=== PATIENT | female | born 1975 | race Hispanic/Latino ===

== ENCOUNTER 2022-10-01 05:30 | Observation (INO) | payer MEDICAID ==
[2022-09-26 11:38] LABS: BASOPHILS % (AUTO) 0.3 % (0.0-5.0); EOSINOPHILS % (AUTO) 1.8 % (0.0-8.0); HEMATOCRIT 37.2 % (36-48); LYMPHOCYTES % (AUTO) 25.9 % (21.0-51.0); MEAN CORPUSCULAR HEMOGLOBIN 25.6 pg (27.0-33.0); MEAN CORPUSCULAR HGB CONC 31.7 g/dL (32.0-36.0); MEAN CORPUSCULAR VOLUME 80.7 fL (79-99); MONOCYTES % (AUTO) 8.8 % (3.0-13.0); NEUTROPHILS % (AUTO) 62.8 % (40.0-77.0); PLATELET COUNT (AUTO) 185 K/uL (130-400); RED BLOOD CELL COUNT(AUTO) 4.61 MIL/uL (4.00-5.50); RED CELL DISTRIBUTION WIDTH 13.7 % (11.0-15.5); WHITE BLOOD COUNT (AUTO) 7.7 K/uL (4.8-10.8)
[2022-09-26 12:28] LABS: APPEARANCE,URINE CLEAR (CLEAR); BILIRUBIN,URINE NEGATIVE (NEGATIVE); COLOR,URINE YELLOW (YELLOW); GLUCOSE, URINE (UA) NEGATIVE (NEGATIVE); KETONES,URINE NEGATIVE (NEGATIVE); LEUKOCYTE ESTERASE ,URINE NEGATIVE Leu/uL (NEGATIVE); NITRATE,URINE NEGATIVE (NEGATIVE); OCCULT BLOOD,URINE NEGATIVE (NEGATIVE); PH,URINE 6.5 (5.0-8.0); PROTEIN,URINE 20 mg/dL (NEGATIVE); UROBILINOGEN,URINE 0.2 mg/dL (0.2-1.0)
[2022-09-26 12:34] LABS: BACTERIA,URINE RARE /HPF (None Seen); MUCUS,URINE RARE LPF (None Seen); SQUAMOUS EPITHELIAL CELL,UR FEW /HPF (0-2); WBC,URINE 0-1 /HPF (0-1)
[2022-09-26] MEDS: CEFAZOLIN SODIUM 2 GM VIAL IVPB SCH (14:00)
[2022-09-27] MEDS: CEFAZOLIN SODIUM 2 GM VIAL IVPB SCH (14:00)
[2022-09-30 09:31] VITALS: BP 129/67
[~2022-10-01] VITALS: Ht 167.6 cm; Wt 79.8 kg
[2022-10-01] VITALS (24 sets, daily range): BP systolic 88–135; BP diastolic 33–82
[2022-10-01] MEDS ORDERED: LACTATED RINGERS 1000ML 1,000 ML IV ONE ×2 (07:05→09:50)
[2022-10-01] MEDS ORDERED: PROPOFOL 10 MG/ML 20ML VIAL IV ONE (07:34)
[2022-10-01] MEDS ORDERED: ROCURONIUM 10MG/1ML SYR 10 MG/ML ML ONE (07:34)
[2022-10-01] MEDS ORDERED: MIDAZOLAM HCL 1 MG/ML 2ML VIAL ONE (07:34)
[2022-10-01] MEDS ORDERED: FENTANYL CITRATE PF 50 MCG/1 ML 2ML VIAL ONE ×2 (07:34→08:57)
[2022-10-01] MEDS ORDERED: LIDOCAINE PF 100MG/5ML (2%) SYRINGE 5ML ONE (07:34)
[2022-10-01] MEDS: CEFAZOLIN SODIUM 2 GM VIAL IVPB SCH (07:43)
[2022-10-01] MEDS ORDERED: GLYCOPYRROLATE 1 MG/5 ML SYRINGE ONE (08:21)
[2022-10-01] MEDS ORDERED: EPHEDRINE SULFATE 50 MG/ML AMPULE ONE (08:27)
[2022-10-01] MEDS ORDERED: NEOSTIGMINE 5MG/5ML SYR IV ONE (08:57)
[2022-10-01] MEDS ORDERED: MEPERIDINE-PF 25 MG/ML SYG ONE (09:34)
[2022-10-01] MEDS ORDERED: MEPERIDINE-PF 75 MG/ML SYG IM PRN (10:30)
[2022-10-01] MEDS ORDERED: IBUPROFEN 600 MG TABLET PO PRN (10:30)
[2022-10-01] MEDS ORDERED: DOCUSATE SODIUM 100 MG CAP PO PRN (10:30)
[2022-10-01] MEDS ORDERED: BISACODYL 10 MG SUPP.RECT RC PRN (10:30)
[2022-10-01] MEDS ORDERED: SIMETHICONE 80 MG TAB.CHEW PO PRN (10:30)
[2022-10-01] MEDS ORDERED: PROMETHAZINE HCL 25 MG/ML 1ML AMPULE IM PRN ×2 (10:30)
[2022-10-01] MEDS: ACETAMINOPHEN WITH CODEINE 1 TAB TAB PO PRN (15:32)
[2022-10-01] MEDS: DEXTROSE 5 %-0.45 % NACL 1,000 ML IV SCH (18:54)
[2022-10-02] MEDS: DEXTROSE 5 %-0.45 % NACL 1,000 ML IV SCH ×2 (02:58→11:00)
[2022-10-02] MEDS: ACETAMINOPHEN WITH CODEINE 1 TAB TAB PO PRN (03:04)
[2022-10-02 03:21] VITALS: BP 98/62
[2022-10-02 07:48] VITALS: BP 109/58
[2022-10-02 09:06] LABS: HEMATOCRIT 31.9 % (36-48); MEAN CORPUSCULAR HEMOGLOBIN 25.7 pg (27.0-33.0); MEAN CORPUSCULAR HGB CONC 31.3 g/dL (32.0-36.0); RED BLOOD CELL COUNT(AUTO) 3.89 MIL/uL (4.00-5.50); RED CELL DISTRIBUTION WIDTH 14.1 % (11.0-15.5); WHITE BLOOD COUNT (AUTO) 12.7 K/uL (4.8-10.8)
[2022-10-02 11:56] VITALS: BP 118/71
== END 2022-10-02 12:10 | disposition home or self-care (01) ==
LOC: DAH 05:30 → WSH 05:31 → DAH 05:31
PROVIDERS: ADMIT Obstetrics & Gynecology; ATTEND Obstetrics & Gynecology
DX: D25.9 Leiomyoma of uterus, unspecified (principal); Z20.822 Contact with and (suspected) exposure to COVID-19; N83.202 Unspecified ovarian cyst, left side; N92.1 Excessive and frequent menstruation with irregular cycle; K46.9 Unspecified abdominal hernia without obstruction or gangrene; Z79.899 Other long term (current) drug therapy
CPT/HCPCS: 85025; 86850 ×2; 86900 ×2; 86901 ×2; 87426; 81001; 36415 ×3; 58263; 96372; 84703; 85027; A6260; G0378 ×30; G0379; A4663; J7120 ×3; A4351; A4606; J3010 ×2; J3490 ×4; J2710; J2550; J2250; J2175 ×2; J0690; A4649; A4930; A4215; A4223; A4222; A4221; A4600; A4510; J2001; J2704

== ENCOUNTER 2023-06-12 00:58 | Emergency (ER) | payer MEDICAID ==
[~2023-06-12] VITALS: Ht 167.6 cm; Wt 82.1 kg
[2023-06-12 07:22] LABS: BASOPHILS # (AUTO) 0.01 K/uL (0.00-0.20); BASOPHILS % (AUTO) 0.1 % (0.0-5.0); EOSINOPHILS # (AUTO) 0.15 K/uL (0.00-0.70); HEMATOCRIT 38.2 % (36-48); IMMATURE GRANULOCYTE ABSOLUTE 0.03 K/uL (0-1); LYMPHOCYTES # (AUTO) 2.3 K/uL (1.0-4.8); LYMPHOCYTES % (AUTO) 31.6 % (21.0-51.0); MEAN CORPUSCULAR HEMOGLOBIN 27.6 pg (27.0-33.0); MEAN CORPUSCULAR HGB CONC 32.5 g/dL (32.0-36.0); MEAN CORPUSCULAR VOLUME 85.1 fL (79-99); MONOCYTES # (AUTO) 0.6 K/uL (0.1-1.0); MONOCYTES % (AUTO) 7.7 % (3.0-13.0); NEUTROPHILS # (AUTO) 4.3 K/uL (1.8-7.7); NEUTROPHILS % (AUTO) 58.2 % (40.0-77.0); PLATELET COUNT (AUTO) 156 K/uL (130-400); RED BLOOD CELL COUNT(AUTO) 4.49 MIL/uL (4.00-5.50); WHITE BLOOD COUNT (AUTO) 7.4 K/uL (4.8-10.8)
[2023-06-12 07:30] LABS: CREATININE 0.6 mg/dL (0.5-1.5); POTASSIUM 3.8 mmol/L (3.5-5.1)
[2023-06-12 07:35] LABS: ALBUMIN 3.5 g/dL (3.5-5.0); BILIRUBIN,TOTAL 0.3 mg/dL (0.2-1.0); TOTAL PROTEIN, SERUM 7.8 g/dL (6.0-8.3)
[2023-06-12 08:02] LABS: APPEARANCE,URINE CLOUDY (CLEAR); BILIRUBIN,URINE NEGATIVE (NEGATIVE); COLOR,URINE LIGHT-YELLOW (YELLOW); GLUCOSE, URINE (UA) NEGATIVE (NEGATIVE); KETONES,URINE NEGATIVE (NEGATIVE); LEUKOCYTE ESTERASE ,URINE NEGATIVE Leu/uL (NEGATIVE); NITRATE,URINE 2+ (NEGATIVE); OCCULT BLOOD,URINE NEGATIVE (NEGATIVE); PROTEIN,URINE NEGATIVE (NEGATIVE); UROBILINOGEN,URINE 0.2 mg/dL (0.2-1.0)
[2023-06-12 08:03] LABS: ADD UA MICROSCOPIC YES
[2023-06-12 08:12] LABS: BACTERIA,URINE MANY /HPF (None Seen); MUCUS,URINE FEW LPF (None Seen); SQUAMOUS EPITHELIAL CELL,UR FEW /HPF (0-2)
[2023-06-12] MEDS ORDERED: CLOT15CR23 TP (08:28)
[2023-06-12] MEDS ORDERED: SULF1TAB42 PO (09:03)
[2023-06-12 09:15] VITALS: BP 112/66; PULSE 69; RESP 12; O2SAT 99
== END 2023-06-12 09:14 | disposition home or self-care (01) ==
LOC: EDH 00:58
DX: B35.3 Tinea pedis (principal); L73.9 Follicular disorder, unspecified
CPT/HCPCS: 36415; 80053; 81001; 85025; 87077; 87088; 87186

== ENCOUNTER 2024-12-28 01:26 | Emergency (ER) | payer SELFPAY ==
[~2024-12-28] VITALS: Ht 167.6 cm; Wt 80.3 kg
[~2024-12-28 01:26] MED LIST: CLOT15CR23 TP; SULF1TAB42 PO
[2024-12-28 02:10] LABS: HEMATOCRIT 43.2 % (36-48); MEAN CORPUSCULAR HEMOGLOBIN 27.7 pg (27.0-33.0); MEAN CORPUSCULAR HGB CONC 31.9 g/dL (32.0-36.0); MEAN CORPUSCULAR VOLUME 86.6 fL (79-99); PLATELET COUNT (AUTO) 168 K/uL (130-400); RED BLOOD CELL COUNT(AUTO) 4.99 MIL/uL (4.00-5.50); WHITE BLOOD COUNT (AUTO) 13.4 K/uL (4.8-10.8)
[2024-12-28] MEDS: ondanSETRON 4MG INJ IVP ONE (02:22)
[2024-12-28] MEDS: FAMOTIDINE 20MG VIAL IV ONE (02:22)
[2024-12-28] MEDS: 0.9%NACL 1000ML 1,000 ML IV ONE (02:23)
[2024-12-28 02:24] LABS: CREATININE 0.7 mg/dL (0.5-1.0); POTASSIUM 3.2 mmol/L (3.5-5.1)
[2024-12-28] MEDS: cefTRIAXone 1G VIAL IVPB ONE (02:59)
[2024-12-28] MEDS: PoTASSium BIcarbonate/CIT AC 25 MEQ TABLET.EFF PO ONE (02:59)
[2024-12-28 03:01] LABS: LYMPHOCYTES % (MANUAL) 16 % (22-44); MAN.DIFF COMMENT-IMPRESSION MANUAL DIFFERENTIAL; MONOCYTES % (MANUAL) 1 % (2-9); OTHER CELLS,MANUAL % 1 (0-0); SEGMENTED NEUTROPHILS % 82 % (40-70); TOTAL CELLS COUNTED 100
[2024-12-28] MEDS ORDERED: METR375C2 PO (03:18)
[2024-12-28] MEDS ORDERED: ONDA-243 PO (03:18)
[2024-12-28] MEDS ORDERED: FAMO-136 PO (03:18)
--- NOTE | 2024-12-28 03:19 | ERN ---
General Chief Complaint: Nausea,Vomiting,Diarrhea Stated Complaint: C/O N X V X DIARRHEA ONSET TONIGHT Time Seen by MD: 01:56 Time Seen by Midlevel: 01:56 Source: patient History of Present Illness Initial Comments 49-year-old female presenting to the emergency department with nausea/vomiting/diarrhea that started tonight. Family members sick with similar symptoms after he ate food that was left over. Patients specifically denies any abdominal pain. No other symptoms reported Allergies: Coded Allergies: No Known Drug Allergies (Verified Allergy, Unknown, 09/26/22) Home Meds Active Scripts Sulfamethoxazole/Trimethoprim (Bactrim Ds Tablet) 800 Mg-160 Mg Tablet, 1 TAB PO BID for 5 Days, #10 TAB 0 Refills Prov:MELISSA LYMAN MD 06/12/23 Clotrimazole (Clotrimazole) 1 % Cream..g., 1 APPL TP BID for 21 Days, #1 TUBE Apply to affected foot Prov:MELISSA LYMAN MD 06/12/23 Past Medical History Past Medical History: No Pertinent History Past Surgical History: Hysterectomy ROS Dictation CONSTITUTIONAL: Negative except for HPI HEAD/FACE: Negative except for HPI EENT: Negative except for HPI RESPIRATORY: Negative except for HPI GASTROINTESTINAL/ABDOMINAL: Negative except for HPI GENITOURINARY: Negative except for HPI MUSCULOSKELETAL: Negative except for HPI INTEGUMENTARY: Negative except for HPI NEUROLOGICAL/PSYCH: Negative except for HPI HEMATOLOGIC/LYMPHATIC: Negative except for HPI All Systems Negative, Except as noted above. 13 point review of systems assessed and all negative except for above. Physical Exam Physical Exam Dictation Vital Signs reviewed General Appearance: Alert, oriented x 3, no acute distress, well developed, nourished. Head and Face: non-traumatic. Eyes: PERRL, pink conjunctivas, eyelid no trauma, anterior chamber with arcus senilis. Ears: Pinnas intact and no signs of trauma or erythema ear canals clear and no discharge TM no erythema Nose: No discharge, no bleeding. Oropharynx: Mouth normal, tongue pink, pharynx clear,no erythema, tonsils no exudates, no abscesses noted, mucous membrane moist Neck: Supple, non-tender, no thyromegaly, no masses, no JVD, no bruits Breast:Deferred Chest:No tenderness, no crepitus, no paradoxical movement, no retractions Lungs:Clear, well-ventilated, symmetric, no rales, no wheezing, no rhonchi, no stridor, good breath sounds bilaterally Heart: Regular rate, regular rhythm, no murmur, no gallops Vascular: no peripheral edema, Abdomen: Soft, positive bowel sounds, nondistended, no guarding, nontender, no rebound, no masses no hepatomegaly, no splenomegaly, no Renner's sign, no hernias. Rectal: Deferred Genital: Deferred Neurological: Normal speech, motor function intact, sensory function intact Musculoskeletal: Neck nontender, full range of motion, back nontender, full range of motion, Extremities: nontender, full range of motion Skin: Color pink, dry, no turgor, no rash, no lacerations, no abrasions, no contusions. Lymphatic: Deferred Results Laboratory and Microbiology Lab and Micro Result Laboratory Tests Test 12/28/24 02:02 White Blood Count 13.4 K/uL (4.8-10.8) H Red Blood Count 4.99 MIL/uL (4.00-5.50) Hemoglobin 13.8 g/dL (12.0-16.0) Hematocrit 43.2 % (36-48) Mean Corpuscular Volume 86.6 fL (79-99) Mean Corpuscular Hemoglobin 27.7 pg (27.0-33.0) Mean Corpuscular Hemoglobin Concent 31.9 g/dL (32.0-36.0) L Red Cell Distribution Width 13.0 % (11.0-15.5) Platelet Count 168 K/uL (130-400) Mean Platelet Volume 11.4 fL (7.5-10.5) H Segmented Neutrophils % 82 % (40-70) H Lymphocytes % (Manual) 16 % (22-44) L Monocytes % (Manual) 1 % (2-9) L Other Cells % 1 (0-0) H Nucleated Red Blood Cells 0.0 % (0.0-0.19) Differential Comment MANUAL DIFFERENTIAL White Cell Morphology Comment Platelet Morphology Comment See comments Red Blood Cell Morphology POIKILOCYTOSIS 1+ Sodium Level 142 mmol/L (136-145) Potassium Level 3.2 mmol/L (3.5-5.1) L Chloride Level 102 mmol/L (101-111) Carbon Dioxide Level 32 mmol/L (21-32) Blood Urea Nitrogen 20 mg/dL (7-18) H Creatinine 0.7 mg/dL (0.5-1.0) Glomerular Filtration Rate Calc 107 mL/min (>90) Random Glucose 119 mg/dL (70-105) H Total Calcium 9.2 mg/dL (8.5-10.1) Labs Reviewed?: Yes MDM MDM: Differential diagnosis: Viral gastroenteritis, pancreatitis There are no social concerns with this patient. Prescription drug management Prescriptions will include: Zofran and Pepcid Medical management and examination interpretation discussions were had by me with other qualified healthcare professionals as indicated for the patient's care. ED Course Orders Procedure Category Date Status Time Cbc W Manual Diff LAB 12/28/24 In Process 01:43 Basic Metabolic Panel LAB 12/28/24 Complete 01:43 0.9%Nacl 1000ml (Ns PHA 12/28/24 Complete 1000ml) 02:30 Ondansetron 4mg Inj PHA 12/28/24 Complete (Zofran 4mg Inj) 02:30 Famotidine 20mg Vial PHA 12/28/24 Complete (Pepcid 20mg Vial) 02:30 Potassium Bicarb/Cit PHA 12/28/24 Complete Ac 25meq (K-Lyte Ta 03:00 Ceftriaxone 1g Vial PHA 12/28/24 Complete (Rocephine 1g Inj) 03:00 Current Medications Medications (Trade) Dose Ordered Sig/Kelly Route PRN Reason Start Time Stop Time Status Last Admin Dose Admin Ceftriaxone Sodium (ROCEphine 1G INJ) 1 gm ONCE ONCE IVPB 12/28/24 03:00 12/28/24 03:01 DC 12/28/24 02:59 Famotidine (Pepcid 20mg Vial) 20 mg ONCE ONCE IV 12/28/24 02:30 12/28/24 02:31 DC 12/28/24 02:22 Ondansetron HCl (zoFRAN 4MG INJ) 4 mg ONCE ONCE IVP 12/28/24 02:30 12/28/24 02:31 DC 12/28/24 02:22 Potassium Bicarbonate (K-Lyte Tablet Eff 25 Meq Tablet.eff) 25 meq ONCE ONCE PO 12/28/24 03:00 12/28/24 03:01 DC 12/28/24 02:59 Sodium Chloride 1,000 ml @ 0 mls/hr ONCE ONCE IV 12/28/24 02:30 12/28/24 02:31 DC 12/28/24 02:23 Vital Signs Date Time Temp Pulse Resp B/P (MAP) Pulse Ox O2 Delivery O2 Flow Rate FiO2 12/28/24 01:28 98.1 106 20 121/77 97 Room Air DX & DISP Disposition: Discharge Departure Impression: Primary Impression: Viral gastroenteritis Additional Impression: Leukocytosis Condition: Stable Scripts Metronidazole (Flagyl) 375 Mg Capsule 1 CAP PO BID for 5 Days, #10 CAP 0 Refills Prov: JENNIFER LAUREANO 12/28/24 Famotidine (Pepcid) 20 Mg Tablet 1 TAB PO BID for 30 Days, #60 TAB 0 Refills Prov: JENNIFER LAUREANO 12/28/24 Ondansetron (Ondansetron Odt) 4 Mg Tab.rapdis 4 MG PO BID for 7 Days, #14 TAB Prov: JENNIFER LAUREANO 12/28/24 Additional Instructions: Your blood work today shows an elevated white blood cell count which is usually seen with gastroenteritis The remainder of your blood work is unremarkable. You were given one dose of IV antibiotics in the emergency department. I have given you a prescription for Zofran and Pepcid which should help with any abdominal discomfort. I have also given you a prescription for oral antibiotics for outpatient management. Please follow up with your primary care doctor in 2-3 days for repeat e valuation. Referrals: ALEX SHRESTHA MD (PCP) Time of Disposition: 03:16 I have reviewed the case, and I agree with, Diagnosis and Plan I performed the substantive portion of the visit. I have reviewed and p ersonally made and approve the management plan that is documented in the note by myself or the YOSI. I acknowledge for responsibility for the patient's management plan. JENNIFER LAUREANO Dec 28, 2024 03:19
[2024-12-28 03:30] VITALS: BP 123/80; PULSE 97; RESP 18; TEMP 98; O2SAT 99
--- NOTE | 2024-12-28 10:15 | NUR ---
[facility] THEY CALLED AND ASKED IF WE ARE ABLE TO CHANGE DOSE OF FLAGYL THAT WAS SCRIPTED. WHEN CURRENT ED MD ASKED, HE SAID HE COULD NOT CHANGE IT D/T THERE BEING A SPECIFIC REASON TO WHY THE DOSE OF FLAGYL 375MG WAS PRESCRIBED.
== END 2024-12-28 04:03 | disposition home or self-care (01) ==
LOC: EDH 01:26
DX: A08.4 Viral intestinal infection, unspecified (principal); D72.829 Elevated white blood cell count, unspecified; Z90.710 Acquired absence of both cervix and uterus; Z79.899 Other long term (current) drug therapy
CPT/HCPCS: 36415; 80048; 85025; 96374; 96375; 99284; J0696; J2405; J3490; J7030

== ENCOUNTER 2025-08-28 21:30 | Emergency (ER) | payer SELFPAY ==
[~2025-08-28] VITALS: Ht 167.6 cm; Wt 79.4 kg
[~2025-08-28 21:30] MED LIST changes: +FAMO-136 PO; +METR375C2 PO; +ONDA-243 PO
[2025-08-28 21:35] VITALS: BP 125/48; PULSE 94; RESP 20; TEMP 97.7
--- NOTE | 2025-08-28 21:46 | ERN ---
ED Note History of Present Illness Stated Complaint: FALL Chief Complaint: Ankle Problem Time Seen by MD: 21:42 Dictation: This is a 50-year-old female who presented to the emergency room complaining of fall with bilateral ankle pains. This happened an hour before presentation. No loss of consciousness patient is not on any blood thinners. She does not have any regular health care. Bilateral ankles were wrapped in Claudy bandage before she came in. She stated that she was getting down the steps and missed the last step and fell down with both ankles getting twisted. No other injuries. Temperature 97.7 pulse 94 respirations 20 blood pressure 125/48 with a pulse oximetry of 99% on room air History in the past has been hysterectomy Allergies: Coded Allergies: No Known Drug Allergies (Verified Allergy, Unknown, 09/26/22) Home Meds Active Scripts Ketorolac Tromethamine (Toradol) 10 Mg Tab, 10 MG PO QID for pain for 5 Days, #20 TAB 0 Refills Prov:PATRICE RENEE MD 08/29/25 Metronidazole (Flagyl) 375 Mg Capsule, 1 CAP PO BID for 5 Days, #10 CAP 0 Refills Prov:JENNIFER LAUREANO 12/28/24 Famotidine (Pepcid) 20 Mg Tablet, 1 TAB PO BID for 30 Days, #60 TAB 0 Refills Prov:JENNIFER LAUREANO 12/28/24 Ondansetron (Ondansetron Odt) 4 Mg Tab.rapdis, 4 MG PO BID for 7 Days, #14 TAB Prov:JENNIFER LAUREANO 12/28/24 Sulfamethoxazole/Trimethoprim (Bactrim Ds Tablet) 800 Mg-160 Mg Tablet, 1 TAB PO BID for 5 Days, #10 TAB 0 Refills Prov:MELISSA LYMAN MD 06/12/23 Clotrimazole (Clotrimazole) 1 % Cream..g., 1 APPL TP BID for 21 Days, #1 TUBE Apply to affected foot Prov:MELISSA LYMAN MD 06/12/23 Past Medical History Past Medical History: No Pertinent History Surgical History: Hysterectomy Family History: Negative Social History: Negative RN Note Reviewed/Agreed w/PFSH: Yes Review of System Dictation Constitutional: Negative for fever,chills, and weight loss Eyes: Negative for injury, pain,redness, and discharge ENT: Negative for injury,pain or swelling Cardiovascular: Negative for chest pain, palpitations, and edema Respiratory: Negative for shortness of breath, cough, and wheezing, Abdomen/GI: Negative for abdominal pain, nausea, vomiting, diarrhea, and constipation Back: Negative for injury and pain : Negative for injury, bleeding and discharge MS/Extremity: Positive for injury and mild deformity of right ankle, mild swelling of the left ankle, positive for pain Skin: Negative for rash, and discoloration Neuro: Negative for headache, weakness, numbness, tingling, and seizure Psych: Negative for suicide ideation, homicidal ideation, and hallucinations Initial Vital Sign VS Vital Signs Date Time Temp Pulse Resp B/P (MAP) Pulse Ox O2 Delivery O2 Flow Rate FiO2 08/28/25 21:35 97.7 94 20 125/48 99 Room Air Physical Exam Dictation General: awake, alert, NAD overweight female not in any distress Head/Face: Normocephalic, atraumatic Eyes: PERRL, EOMI, vision at baseline ENT: oral cavity clear, TMs clear, no signs of infection Neck: Trachea midline, supple, no nuchal rigidity Cardiovascular: RRR, normal S1/S2, No MRGs, no JVD Respiratory: CTAB, no respiratory distress, No rales or wheezes Abdomen: Soft, non-tender, non-distended, normal bowel sounds, no guarding or rebound. Skin: Warm, dry, normal turgor, no rash MS/Extremity: Pulses equal, no cyanosis, neurovascular intact, FROM left ankle mild swelling but full range of motion present. Right ankle swollen with mild deformity on the medial aspect but no open wounds or lacerations. Neuro: COAx4, GCS 15, strength 5/5, CN 2-12 intact, normal cerebellar exam, normal gait, Psych: Normal behavior, mood, and affect normal Extremities-trace edema without any palpable cords, Homans sign is negative Results (Laboratory/Radiology) Labs Reviewed?: Yes X-RAY Comment: REASON: INJURY ORDERING PHYSICIAN: PATRICE RENEE MD PROCEDURE: [id number] - ANKLE COMP 3VWS LT EXAM: CR Left Ankle, 3 views. CLINICAL HISTORY: Pain. COMPARISON: None provided. FINDINGS: No acute fracture or aggressively appearing osseous lesion. Small calcaneal spur. Joint spaces are within normal limits. No radiographic evidence of joint effusion. The soft tissues are unremarkable. IMPRESSION: No acute osseous abnormality. Small calcaneal spur. /[place] DICTATED BY: RAEANN JIMENEZ Jr., MD DATE: 08/29/2520 ELECTRONICALLY SIGNED BY: RAEANN JIMENEZ Jr., MD DATE: 08/29/2520 REASON: INJURY ORDERING PHYSICIAN: PATRICE RENEE MD PROCEDURE: [id number] - ANKLE COMP 3VWS RT EXAM: CR Right Ankle, 3 views. CLINICAL HISTORY: Injury. COMPARISON: None provided. FINDINGS: There are oblique nondisplaced fracture of the distal fibular shaft. Oblique mildly displaced fracture of the posterior malleolus. Joint spaces are within normal limits. No radiographic evidence of joint effusion. The soft tissues are unremarkable. IMPRESSION: Oblique nondisplaced fracture of the distal fibular shaft. Oblique mildly displaced fracture of the posterior malleolus. /[place] DICTATED BY: RAEANN JIMENEZ Jr., MD DATE: 08/29/2527 ELECTRONICALLY SIGNED BY: RAEANN JIMENEZ Jr., MD DATE: 08/29/2527 ED Course ED Course Orders Procedure Category Date Status Time Ankle Comp 3vws Lt RAD 08/28/25 Resulted 21:48 Ankle Comp 3vws Rt RAD 08/28/25 Resulted 21:48 Ketorolac PHA 08/29/25 Logged Tromethamine 30mg/Ml 00:00 Current Medications Medications (Trade) Dose Ordered Sig/Kelly Route PRN Reason Start Time Stop Time Status Last Admin Dose Admin Ketorolac Tromethamine (toRADol) 30 mg ONCE ONCE IM 08/29/25 00:00 08/29/25 00:01 UNV Vital Signs Date Time Temp Pulse Resp B/P (MAP) Pulse Ox O2 Delivery O2 Flow Rate FiO2 08/28/25 21:35 97.7 94 20 125/48 99 Room Air Medical Decision Making MDM Differential diagnosis-ankle sprain, fracture of tibia fibula, fracture of the malleolus, fracture of the tarsal bones, hematoma, degenerative arthritis This is a 50-year-old female who presented to the emergency room complaining of fall with bilateral ankle pains. This happened an hour before presentation. No loss of consciousness patient is not on any blood thinners. She does not have any regular health care. Bilateral ankles were wrapped in Claudy bandage before she came in. She stated that she was getting down the steps and missed the last step and fell down with both ankles getting twisted. No other injuries. Temperature 97.7 pulse 94 respirations 20 blood pressure 125/48 with a pulse oximetry of 99% on room air History in the past has been hysterectomy 11:15 p.m. bilateral x-rays of the ankles are pending 11:30 p.m. x-rays of both the ankles resulted left ankle negative for any fracture but the right ankle shows a distal fibular fracture and also small fracture of the medial malleolus. Right ankle posterior long splint with the immobilization of the right ankle was done. Left ankle Claudy wrapping was done. NSAIDs for pain control I updated patient and spouse on x-ray findings and recommendations and instructions to follow up with the orthopedic surgeon for further recommendations and follow up. Rationale: Tests considered and ordered secondary to shared decision making include: X-rays of the ankles Previous outside records reviewed: Old ER visits. Risk of complication and/or morbidity or mortality of patient management: None Medications-Per medication reconciliation Need for hospitalization: Patient does not meet criteria for hospitalization. Need for emergency major/minor surgery: No There are no social concerns with this patient. Prescription drug management Prescriptions will include symptomatic care Patient's prior external medical records from other ER visits were reviewed by me as indicated. Prior testing and results from previous visits were reviewed. Prior tests were taken into account with medical decision making and resource utilization, independent historian/historians were used to obtain complete medical history. I independently interpreted the test that were performed, results were reviewed by me and considered findings on radiology if ordered. Medical management and examination interpretation discussions were had by me with other qualified healthcare professionals as indicated for the patient's care. Problem List Problem List: (1) Closed right fibular fracture (2) Left ankle sprain (3) Fracture of ankle, medial malleolus, closed DX & DISP Disposition: Discharge Departure Impression: Primary Impression: Closed right fibular fracture Additional Impressions: Fracture of ankle, medial malleolus, closed, Left ankle sprain Condition: Stable Scripts Ketorolac Tromethamine (Toradol) 10 Mg Tab 10 MG PO QID for pain for 5 Days, #20 TAB 0 Refills Prov: PATRICE RENEE MD 08/29/25 Additional Instructions: Patient and the caregiver have been informed of all the diagnostic tests and the imaging conducted during the today's visit to the emergency room and has verbalized understanding of the results I have personally reviewed and interpreted all diagnostic exams performed here in the ER today as well as the vital signs documented by the nursing staff. The patient is now being discharged to home and should follow up with the primary care physician or the specialist as directed by the ER staff. 1 schedule a follow-up appointment; call your primary care physician's office on the next business day to set up a follow-up appointment. 2. Monitor symptoms; if your symptoms worsen return to the emergency room immediately. 3. Return to school/work; you may return to work or school in 2 days or as directed by your primary care physician. 4. Manage pain and fever; take [id number] Tylenol or Advil for pain or fever if there are no contraindications follow the recommended dosage instructions. 5. Stay well hydrated; drink plenty of oral fluids to stay hydrated. 6. Take prescribed medications; take any medications prescribed in the emergency room as directed bring them with you to your primary care physician visit for possible adjustments. 7. Complete medication course; finish the entire course of medication as prescribed even if you start feeling better. Do not have any leftover medication unless instructed otherwise. 8. Follow up on culture results; if a urine culture and wound culture was ordered in the emergency room please follow-up with your primary care physician within 2-3 days to review the culture and sensitivity report for appropriate antibiotic therapy adjustments. 9. Resume home medications; you may resume taking your home medications unless instructed otherwise. You had an ankle splint placed on the right side for fibula fracture and medial malleolus fracture. You must follow up with the orthopedic surgeon for evaluation any additional recommendations and management. Referrals: SELF,REFERRAL (PCP) MEREDITH PATTON ANURADHA R MD Aug 28, 2025 21:46
--- NOTE | 2025-08-28 23:22 | HMCIMG ---
EXAM: CR Left Ankle, 3 views. CLINICAL HISTORY: Pain. COMPARISON: None provided. FINDINGS: No acute fracture or aggressively appearing osseous lesion. Small calcaneal spur. Joint spaces are within normal limits. No radiographic evidence of joint effusion. The soft tissues are unremarkable. IMPRESSION: No acute osseous abnormality. Small calcaneal spur. /[place]
--- NOTE | 2025-08-28 23:29 | HMCIMG ---
EXAM: CR Right Ankle, 3 views. CLINICAL HISTORY: Injury. COMPARISON: None provided. FINDINGS: There are oblique nondisplaced fracture of the distal fibular shaft. Oblique mildly displaced fracture of the posterior malleolus. Joint spaces are within normal limits. No radiographic evidence of joint effusion. The soft tissues are unremarkable. IMPRESSION: Oblique nondisplaced fracture of the distal fibular shaft. Oblique mildly displaced fracture of the posterior malleolus. /[place]
[2025-08-29] MEDS ORDERED: KETO10 PO
== END 2025-08-29 00:29 | disposition home or self-care (01) ==
LOC: EDH 21:30
DX: S82.831A Other fracture of upper and lower end of right fibula, initial encounter for closed fracture (principal); S82.52XA Displaced fracture of medial malleolus of left tibia, initial encounter for closed fracture; S39.012A Strain of muscle, fascia and tendon of lower back, initial encounter; Z90.710 Acquired absence of both cervix and uterus; W01.0XXA Fall on same level from slipping, tripping and stumbling without subsequent striking against object, initial encounter; Y93.89 Activity, other specified; Y92.89 Other specified places as the place of occurrence of the external cause; Y99.8 Other external cause status
CPT/HCPCS: 99283; 29505; 73610 ×2; 96372; J1885; 29515